=== PATIENT | female | born 1995 | race Caucasian/White ===

== ENCOUNTER 2018-03-22 05:00 | Inpatient (IN) | payer BC ==
[2018-03-22 05:30] VITALS: BMI 23.3
[2018-03-22] MEDS ORDERED: HYDROcodone/Acetaminophen 5/325 mg Tablet PO PRN ×6 (08:03→20:55)
[2018-03-22] MEDS ORDERED: NS / Oxytocin 40 units/1000ml 1,000 ML IV PRN (08:03)
[2018-03-22] MEDS ORDERED: Ibuprofen 800 MG TAB PO PRN (08:03)
[2018-03-22] MEDS ORDERED: Lidocaine 1% (PF) 30 ML VIAL SC PRN (08:03)
[2018-03-22] MEDS ORDERED: Ondansetron PF 4 MG/2 ML Vial IVP PRN ×3 (08:03→20:32)
[2018-03-22] MEDS ORDERED: Promethazine HCl 25 MG/ML VIAL IM PRN ×2 (08:03→13:13)
[2018-03-22] MEDS ORDERED: Butorphanol Tartrate 1 MG/ML VIAL SLOW IVP PRN (08:03)
[2018-03-22] MEDS: Lactated Ringer's 1,000 ML IV SCH ×2 (08:03→12:57)
[2018-03-22] MEDS ORDERED: NS w/ Oxytocin 10 units 500 ML IV SCH (08:15)
[2018-03-22 08:35] LABS: Hemoglobin 12.9 g/dL (12.0-16.0); Mean Corpuscular HGB CONC 33.9 g/dL (32.0-36.0); Mean Corpuscular Hemoglobin 31.9 pg (27.0-31.0); Mean Platelet Volume 9.7 fL (7.4-10.4); Platelet Count 122 thou/uL (130-400); RBC Distribution Width 11.9 % (11.5-14.5); Red Blood Cell (RBC) Count 4.04 mill/uL (4.20-5.40)
[2018-03-22 09:13] LABS: HBSAg Index 0.23 S/CO (0-0.99); Hep B Surf Ag Non-Reactive S/CO (NonReactive); Syphilis Antibody Nonreactive (Nonreactive); Syphilis Antibody Index 0.06 S/CO (<1.00 Non-Reactive)
[2018-03-22] MEDS ORDERED: Fentanyl 4 mcg/Bup 0.1% Cadd 100 ML ONE ×2 (11:45→19:20)
[2018-03-22] MEDS ORDERED: ePHEDrine/0.9% NaCl/PF SYRINGE 50 mg/10 ml SLOW IVP PRN (13:13)
[2018-03-22] MEDS ORDERED: Eucerin (Mineral Oil/Petrolatum,White) 30 gm Jar TOP PRN (13:13)
[2018-03-22] MEDS ORDERED: Acetaminophen 325 MG TAB PO PRN (13:13)
[2018-03-22] MEDS ORDERED: Naloxone HCl 0.4 mg/ml Vial IVP PRN ×2 (13:13)
[2018-03-22] MEDS ORDERED: Lactated Ringer's 500 ML IV PRN (13:13)
[2018-03-22] MEDS ORDERED: diphenhydrAMINE 50 MG/ML VIAL IVP PRN (13:13)
[2018-03-22] MEDS ORDERED: Communication Order-Pharmacy FS SCH (13:15)
[2018-03-22] MEDS ORDERED: Fentanyl 4 mcg/Bupivacaine 0.1% Cassette 100 ML EPIDURAL SCH (13:15)
[2018-03-22] MEDS ORDERED: Bupivacaine/Epinephrine 0.25% 30 ML VIAL ONE (15:00)
[2018-03-22] MEDS ORDERED: Lidocaine 1% (PF) 30 ML VIAL ONE (15:38)
[2018-03-22] MEDS ORDERED: NS / Oxytocin 40 units/1000ml 1,000 ML ONE (15:38)
[2018-03-22] MEDS ORDERED: Bisacodyl 10 MG SUPP PR PRN (20:32)
[2018-03-22] MEDS ORDERED: Preparation H Ointment 28 GM TUBE PR PRN (20:32)
[2018-03-22] MEDS ORDERED: Adacel (T-DAP) 0.5 ML VIAL IM ONE (20:32)
[2018-03-22] MEDS ORDERED: Milk Of Magnesia 30 ML UDCUP PO PRN (20:32)
[2018-03-22] MEDS ORDERED: diphenhydrAMINE 25 MG CAP PO PRN (20:32)
[2018-03-22] MEDS ORDERED: Benzocaine/Menthol 20-0.5% 60 ML CAN TOP PRN (20:32)
[2018-03-22] MEDS ORDERED: Zolpidem Tartrate 5 MG TAB PO PRN ×2 (20:32→20:54)
[2018-03-22] MEDS: NS / Oxytocin 40 units/1000ml 1,000 ML IV SCH (21:00)
[2018-03-23] MEDS: NS / Oxytocin 40 units/1000ml 1,000 ML IV SCH (00:03)
[2018-03-23] MEDS: Ibuprofen 800 MG TAB PO SCH ×4 (00:03→22:09)
[2018-03-23] MEDS: HYDROcodone/Acetaminophen 5/325 mg Tablet PO PRN ×2 (00:11→22:09)
[2018-03-23] MEDS: Docusate Calcium (SURFAK) 240 MG CAP PO SCH ×3 (03:06→22:09)
[2018-03-23] MEDS: Ferrous Sulfate 325 MG TAB PO SCH ×2 (08:11→16:27)
--- NOTE | 2018-03-23 16:47 | OP ---
DATE OF SERVICE: 03/22/2018 PREOPERATIVE DIAGNOSES: 1. A 23-year-old G1 with onset of active labor. 2. GBS negative. 3. History of genetic testing which showed positive for spinal muscular dystrophy, has been screened was negative. POSTOPERATIVE DIAGNOSES: 1. A 23-year-old G1 with onset of active labor. 2. GBS negative. 3. History of genetic testing which showed positive for spinal muscular dystrophy, has been screened was negative. 4. Vacuum assisted vaginal delivery for maternal exhaustion and occiput posterior. 5. Liveborn male with Apgars of 8 and 9 at 1 and 5 minutes respectively. CLINICAL HISTORY: This patient is a 23-year-old female G1 who called her physician at 39 w eeks and 5 days with a complaint of regular contractions and pain. The patient at that point in time did not have any bloody show. She was advised to use comfort measures at home. The patient was abl e to go back to sleep; however, in the middle of the night, the patient awoke again with painful cont ractions and this time, some bloody show. She then presented to the Labor and Delivery upon advice f rom her physician and was found to be 3.5 cm, 80% effaced and -2 station. The patient was watched fo r 2 hours and then transitioned to 4 cm, 90% effaced and -2. She was admitted and allowed to continu e to contract and amniotomy was performed for clear fluid. The patient was rechecked in 2 hours and was not noted to make any change. At that point in time, pitocin was started. The patient had a cat egory 1 tracing prior to and continuing through. She then requested epidural for maternal analgesia after a dose of Stadol. The patient got adequate anesthesia with the epidural. The patient then pro gressed to complete cervical dilation and +1 station and started to push. The patient was not moving the vertex very well and so it was decided to allow her to labor down then thereafter she an h our later began to push again and with good maternal effort was able to bring the vertex to a + 2 station; however, after checking for position in attempting to turn the baby, the patient was continued to notice a OP position. Several different techniques were performed including plac ing the patient in hands and knees pushing that way for a period of time. The patient wanted to cont inue to push even though she was offered a vacuum assist at 2 hours. After a 2.5 almost 3 hours, the patient was offered the vacuum again and agreed. There were 3 pulls for 3 contractions with no pop offs and the vertex was then at the position. DESCRIPTION OF PROCEDURE: Once the vacuum assist was performed. The vacuum was removed and a midlin e episiotomy was performed to allow the patient to deliver the vertex in the OP position. The anterior shoulder then followed by the posterior shoulder followed by the remainder of the infant's b blayne was delivered. The cord was doubly clamped and cut by the father of the baby. cried spon taneously and was placed on the maternal abdomen for continued stimulation. The cord blood was then obtained and the placenta was delivered spontaneously intact with a 3-vessel cord. Exploration of th e vagina introitus and cervix revealed only the midline episiotomy laceration without extension which was repaired in a running locking fashion for hemostasis diving down for the crown sutures to reappr oximate the space and then closing the skin and bearing the knot behind the hymen. The patient had excellent hemostasis post-repair with a 3-0 Vicryl on a CT1. All needle, sponge, lap, and instru ment counts were correct x2 at the end of the procedure. There were no other issues surrounding this delivery. The mother was able to recover with her infant skin to skin for the first hour. Again, t he infant was a liveborn male weighing 7 pounds 13 ounces with Apgars of 8 and 9 at 1 and 5 minutes r espectively. ESTIMATED BLOOD LOSS: 350 mL. QBL was calculated at 349. There were no other issues surrounding this delivery.
[2018-03-24] MEDS: Ibuprofen 800 MG TAB PO SCH (05:53)
[2018-03-24 08:36] VITALS: BP 109/62; TEMP 98
[2018-03-24] MEDS: Docusate Calcium (SURFAK) 240 MG CAP PO SCH (09:26)
[2018-03-24] MEDS: Ferrous Sulfate 325 MG TAB PO SCH (09:26)
== END 2018-03-24 12:55 | disposition home or self-care (01) | DRG 807 ==
LOC: L&D/OP 05:00 → L&D 07:52 → 3SW 22:55
PROVIDERS: ADMIT Obstetrics & Gynecology; ATTEND Obstetrics & Gynecology
PROC: 10D07Z6 Extraction of Products of Conception, Vacuum, Via Natural or Artificial Opening (ICD-10-PCS; principal; 2018-03-22)
PROC: 10907ZC Drainage of Amniotic Fluid, Therapeutic from Products of Conception, Via Natural or Artificial Opening (ICD-10-PCS; 2018-03-22)
PROC: 0W8NXZZ Division of Female Perineum, External Approach (ICD-10-PCS; 2018-03-22)
DX: O75.81 Maternal exhaustion complicating labor and delivery (principal); Z37.0 Single live birth; O70.9 Perineal laceration during delivery, unspecified; Z3A.39 39 weeks gestation of pregnancy; Z88.8 Allergy status to other drugs, medicaments and biological substances
CPT/HCPCS: 36415; 51702; 85027; 86780; 86850; 86900; 86901; 87340; 99285; J0595; J2001; J2405

== ENCOUNTER 2020-05-20 09:44 | Outpatient (CLI) | payer BC ==
[2020-05-21 10:56] LABS: SARS-CoV-2 PCR by NAA Not Detected (NotDetected)
== END 2020-05-20 09:45 | disposition home or self-care (01) ==
LOC: LABBT 09:44
PROVIDERS: ATTEND Obstetrics & Gynecology
DX: Z01.812 Encounter for preprocedural laboratory examination (principal); Z20.822 Contact with and (suspected) exposure to COVID-19
CPT/HCPCS: 87635; U0003; U0005

== ENCOUNTER 2020-05-24 21:30 | Inpatient (IN) | payer BC ==
[2020-05-24] MEDS ORDERED: Misoprostol 200 MCG TAB PR PRN (21:59)
[2020-05-24] MEDS ORDERED: HYDROcodone/Acetaminophen 5/325 mg Tablet PO PRN ×2 (21:59)
[2020-05-24] MEDS ORDERED: NS / Oxytocin 40 units/1000ml 1,000 ML IV PRN (21:59)
[2020-05-24] MEDS ORDERED: Lidocaine 1% (PF) 30 ML VIAL SC PRN (21:59)
[2020-05-24] MEDS ORDERED: Diphenoxylate HCl/Atropine Tablet PO PRN ×2 (21:59)
[2020-05-24] MEDS ORDERED: Ibuprofen 800 MG TAB PO PRN (21:59)
[2020-05-24] MEDS ORDERED: Docusate 100 MG CAP PO PRN (21:59)
[2020-05-24] MEDS ORDERED: Ondansetron PF 4 MG/2 ML Vial IVP PRN ×2 (21:59→23:32)
[2020-05-24] MEDS ORDERED: Acetaminophen 500 MG TAB PO PRN (21:59)
[2020-05-24] MEDS ORDERED: Butorphanol Tartrate 1 MG/ML VIAL SLOW IVP PRN (21:59)
[2020-05-24] MEDS ORDERED: hydrALAZINE 20 MG/ML VIAL SLOW IVP PRN (21:59)
[2020-05-24] MEDS ORDERED: Promethazine HCl 25 MG/ML VIAL IM PRN ×2 (21:59→23:32)
[2020-05-24 22:13] VITALS: BMI 24.2
[2020-05-24] MEDS: Lactated Ringer's 1,000 ML IV SCH ×2 (22:15→23:29)
[2020-05-24 22:18] LABS: Hemoglobin 12.1 g/dL (12.0-16.0); Red Blood Cell (RBC) Count 3.87 mill/uL (4.20-5.40); White Blood Cell (WBC) Count 9.7 thou/uL (4.8-10.8)
[2020-05-24 22:19] LABS: Mean Corpuscular HGB CONC 34.2 g/dL (32.0-36.0); Mean Corpuscular Hemoglobin 31.3 pg (27.0-31.0); Mean Corpuscular Volume 91.4 fL (78.0-98.0); Mean Platelet Volume 9.2 fL (7.4-10.4); Platelet Count 120 thou/uL (130-400); RBC Distribution Width 12.1 % (11.5-14.5)
[2020-05-24] MEDS ORDERED: Fentanyl 4 mcg/Bup 0.1% Cadd 100 ML ONE (22:29)
[2020-05-24 22:51] LABS: Syphilis Antibody Nonreactive (Nonreactive); Syphilis Antibody Index 0.03 S/CO (<1.00 Non-Reactive)
[2020-05-24] MEDS ORDERED: ePHEDrine 50 MG/ML VIAL SLOW IVP PRN (23:32)
[2020-05-24] MEDS ORDERED: diphenhydrAMINE 50 MG/ML VIAL IVP PRN (23:32)
[2020-05-24] MEDS ORDERED: Naloxone HCl 0.4 mg/ml Vial IVP PRN ×2 (23:32)
[2020-05-24] MEDS ORDERED: Lactated Ringer's 500 ML IV PRN (23:32)
[2020-05-24] MEDS ORDERED: Acetaminophen 325 MG TAB PO PRN (23:32)
[2020-05-24] MEDS ORDERED: Communication Order-Pharmacy FS SCH (23:45)
[2020-05-24] MEDS ORDERED: Fentanyl 4 mcg/Bupivacaine 0.1% Cassette 100 ML EPIDURAL SCH (23:45)
[2020-05-25 02:12] LABS: HBSAg Index 0.17 S/CO (0-0.99); Hep B Surf Ag Non-Reactive S/CO (NonReactive)
[2020-05-25] MEDS ORDERED: Preparation H Ointment 28 GM TUBE PR PRN (06:15)
[2020-05-25] MEDS ORDERED: diphenhydrAMINE 25 MG CAP PO PRN (06:15)
[2020-05-25] MEDS ORDERED: Adacel (T-DAP) 0.5 ML SYRINGE IM ONE (06:15)
[2020-05-25] MEDS ORDERED: Ondansetron PF 4 MG/2 ML Vial IVP PRN (06:15)
[2020-05-25] MEDS ORDERED: Benzocaine-Menthol 82.5 ML CAN TOP PRN (06:15)
[2020-05-25] MEDS ORDERED: Zolpidem Tartrate 5 MG TAB PO PRN (06:15)
[2020-05-25] MEDS ORDERED: HYDROcodone/Acetaminophen 5/325 mg Tablet PO PRN ×2 (06:15)
[2020-05-25] MEDS ORDERED: Lanolin Ointment 7 GM TUBE TOP PRN (06:15)
[2020-05-25] MEDS ORDERED: Bisacodyl 10 MG SUPP PR PRN (06:15)
[2020-05-25] MEDS ORDERED: Misoprostol 200 MCG TAB VAG PRN (06:15)
[2020-05-25] MEDS ORDERED: NS w/ Oxytocin 30 units 500 ML IV SCH (06:15)
[2020-05-25] MEDS ORDERED: Milk Of Magnesia 30 ML UDCUP PO PRN (06:15)
[2020-05-25] MEDS ORDERED: hydrALAZINE 20 MG/ML VIAL SLOW IVP PRN (06:15)
[2020-05-25] MEDS: Acetaminophen 325 MG TAB PO PRN (11:49)
[2020-05-25] MEDS: Docusate Calcium (SURFAK) 240 MG CAP PO SCH ×2 (11:49→21:49)
[2020-05-25] MEDS: Prenatal Vitamin 1 TAB PO SCH (11:49)
[2020-05-25] MEDS: Ibuprofen 800 MG TAB PO SCH ×2 (15:25→21:49)
[2020-05-25] MEDS: Ferrous Sulfate 325 MG TAB PO SCH ×2 (15:43→16:43)
[2020-05-26] MEDS: Acetaminophen 325 MG TAB PO PRN (03:36)
[2020-05-26] MEDS: Ibuprofen 800 MG TAB PO SCH (05:02)
[2020-05-26 06:37] LABS: Mean Corpuscular Hemoglobin 31.3 pg (27.0-31.0); Mean Corpuscular Volume 92.3 fL (78.0-98.0); Mean Platelet Volume 9.8 fL (7.4-10.4); Platelet Count 105 thou/uL (130-400); RBC Distribution Width 12.3 % (11.5-14.5); Red Blood Cell (RBC) Count 3.52 mill/uL (4.20-5.40); White Blood Cell (WBC) Count 9.7 thou/uL (4.8-10.8)
[2020-05-26] MEDS: Ferrous Sulfate 325 MG TAB PO SCH (07:29)
[2020-05-26 08:25] VITALS: BP 105/62; TEMP 98.1
[2020-05-26] MEDS: Prenatal Vitamin 1 TAB PO SCH (09:05)
[2020-05-26] MEDS: Docusate Calcium (SURFAK) 240 MG CAP PO SCH (09:05)
== END 2020-05-26 11:40 | disposition home or self-care (01) | DRG 806 ==
LOC: L&D 21:30 → L&D-LIB 21:45 → 3SW 05-25 15:10
PROVIDERS: ADMIT Obstetrics & Gynecology; ATTEND Obstetrics & Gynecology
PROC: 10E0XZZ Delivery of Products of Conception, External Approach (ICD-10-PCS; principal; 2020-05-24)
PROC: 10907ZC Drainage of Amniotic Fluid, Therapeutic from Products of Conception, Via Natural or Artificial Opening (ICD-10-PCS; 2020-05-24)
DX: O99.02 Anemia complicating childbirth (principal); O99.354 Diseases of the nervous system complicating childbirth; Z37.0 Single live birth; O99.344 Other mental disorders complicating childbirth; F41.9 Anxiety disorder, unspecified; F32.9 Major depressive disorder, single episode, unspecified; G43.909 Migraine, unspecified, not intractable, without status migrainosus; Z3A.39 39 weeks gestation of pregnancy; Z86.16 Personal history of COVID-19; Z88.2 Allergy status to sulfonamides; Z88.8 Allergy status to other drugs, medicaments and biological substances
CPT/HCPCS: 36415; 51702; 85027; 86780; 86850; 86900; 86901; 87340; 99285; J7030